=== PATIENT | female | born 1980 | race Caucasian/White ===

== ENCOUNTER 2022-06-26 06:16 | Day surgery (SDC) | payer OTHER ==
[~2022-06-26] VITALS: Ht 149.9 cm; Wt 90.6 kg
[~2022-06-26 06:16] MED LIST: AMPICILLIN SOD/SULBACTAM SOD 3 GM in D5W MINI-BAG PLUS 100 ML IV ONE; ARIP1TAB6 PO; BUPR1TAB56 PO; D 50CAP2 PO; HYDR-3363 PO; IRON27TA2 PO; MELA10TA14 PO; MULT-90 PO; PHEN30CA21 PO; SUMA50TA2 PO; dexameTHASONE 4 MG/ML 1ML VIAL (J1100 PER 1MG) IV ONE
[2022-06-26] MEDS ORDERED: LR 1,000 ML IV SCH ×2 (06:50→08:40)
[2022-06-26] MEDS ORDERED: BUPIVACAINE LIPOSOME/PF 1.3% 20ML VIAL (13.3MG/ML)(EXPAREL) As Ordered ONE (07:10)
[2022-06-26] MEDS ORDERED: OXYMETAZOLINE 0.05% NASAL SPRAY (AFRIN) As Ordered ONE (07:14)
[2022-06-26] MEDS ORDERED: LIDOCAINE 2% 100MG/5ML SDV (FOR ANES.) As Ordered ONE (07:17)
[2022-06-26] MEDS ORDERED: ROCURONIUM BROMIDE 50 MG/5 ML VIAL As Ordered ONE (07:17)
[2022-06-26] MEDS ORDERED: propofoL 200 MG/20 ML VIAL As Ordered ONE ×2 (07:17→09:17)
[2022-06-26] MEDS ORDERED: MIDAZOLAM INJ 2MG/2ML VIAL (J2250 PER 1MG) As Ordered ONE (07:18)
[2022-06-26] MEDS ORDERED: ONDANSETRON 4MG 2ML VIAL As Ordered ONE (07:18)
[2022-06-26] MEDS ORDERED: dexameTHASONE 4 MG/ML 1ML VIAL (J1100 PER 1MG) As Ordered ONE (07:18)
[2022-06-26] MEDS ORDERED: fentaNYL 100 MCG/2 ML INJECTION As Ordered ONE ×2 (07:18→08:17)
[2022-06-26] MEDS ORDERED: LIDOCAINE 2% W/ EPINEPHRINE 1.7 ML DENTAL INJ As Ordered ONE ×2 (07:27→08:10)
[2022-06-26] MEDS ORDERED: SUGAMMADEX SODIUM 500 MG/5 ML VIAL (BRIDION) As Ordered ONE (08:25)
[2022-06-26] MEDS ORDERED: KETOROLAC 60MG 2ML VIAL As Ordered ONE (08:25)
[2022-06-26] MEDS ORDERED: HYDROMORPHONE HCL 0.5 MG/ 0.5 ML SYRINGE (J1170 PER 1) IV PRN (08:40)
[2022-06-26] MEDS ORDERED: ONDANSETRON 4MG 2ML VIAL IV PRN (08:40)
[2022-06-26] MEDS ORDERED: oxyCODONE 5MG TAB PO PRN (08:40)
[2022-06-26] MEDS ORDERED: fentaNYL 100 MCG/2 ML INJECTION IV PRN (08:40)
[2022-06-26] MEDS ORDERED: METOCLOPRAMIDE INJ 10MG/2ML VIAL (J2765 PER 1) IV PRN (08:40)
[2022-06-26 10:45] VITALS: BP 128/69
== END 2022-06-26 10:51 | disposition home or self-care (01) ==
LOC: M SDC 06:16
PROVIDERS: ATTEND Dentist
DX: K02.9 Dental caries, unspecified (principal); K01.1 Impacted teeth; F40.232 Fear of other medical care; F41.9 Anxiety disorder, unspecified; F32.A Depression, unspecified; Z98.84 Bariatric surgery status; Z79.899 Other long term (current) drug therapy
CPT/HCPCS: 81025; 88300; C9290; D7210; D9223; J0295; J1100; J1885; J2250; J2405; J3010